=== PATIENT | female | born 1970 | race Caucasian/White ===

== ENCOUNTER 2023-04-15 06:34 | Outpatient (OUT) | payer BC, SELFPAY ==
[2023-04-15 07:34] LABS: Basophils Percent Auto 0.8 % (0.2-2.0); Eosinophils Absolute Auto 0.2 10^3/uL (0.0-0.7); Eosinophils Percent Auto 3.4 % (0.9-7.0); Hematocrit 41.2 % (36.0-48.0); Hemoglobin 13.4 g/dL (12.0-16.0); Immature Granulocytes Abs Auto 0.01 10^3/uL (0.00-0.03); Immature Granulocytes Pct Auto 0.2 % (0.0-0.5); Lymphocytes Absolute Auto 1.6 10^3/uL (1.2-3.8); Lymphocytes Percent Auto 32.2 % (20.5-60.0); Mean Corpuscular HGB Conc 32.5 g/dL (29.9-35.2); Mean Corpuscular Hemoglobin 28.9 pg (26.7-34.0); Mean Platelet Volume 9.8 fL (9.5-13.5); Monocytes Absolute Auto 0.4 10^3/uL (0.3-0.8); Monocytes Percent Auto 7.3 % (1.7-12.0); Neutrophils Absolute Auto 2.8 10^3/uL (1.4-6.5); Neutrophils Percent Auto 56.1 % (43.0-75.0); Platelet Count 269 10^3/uL (150-450); Red Blood Count 4.63 10^6/uL (4.20-5.40); Red Cell Distribution Width 13.2 % (11.0-15.0); White Blood Count 4.9 10^3/uL (4.0-11.0)
[2023-04-15 07:56] LABS: Alanine Aminotransferase 37 U/L (14-59); Albumin Level 3.9 g/dL (3.4-5.0); Alkaline Phosphatase 61 U/L (46-116); Anion Gap 11.5; Aspartate Amino Transferase 18 U/L (15-37); BUN Creatinine Ratio 23.9; Bilirubin Total 0.5 mg/dL (0.2-1.0); Calcium 9.3 mg/dL (8.5-10.1); Carbon Dioxide 28.8 mmol/L (21.0-32.0); Chloride 104 mmol/L (98-107); Estimated GFR (African America >60 (>=60); Estimated GFR (Non-African Ame >60 (>=60); Globulin 3.5 g/dL; Glucose 114 mg/dL (74-106); Potassium 4.3 mmol/L (3.5-5.1); Sodium 140 mmol/L (136-145); Total Protein 7.4 g/dL (6.4-8.2)
[2023-04-15 07:57] LABS: Albumin Globulin Ratio 1.1
[2023-04-15 08:08] LABS: Free T4 0.89 ng/dL (0.76-1.46)
[2023-04-15 08:10] LABS: Free T3 2.59 pg/mL (2.18-3.98); Thyroid Stimulating Hormone 2.665 uIU/mL (0.358-3.740)
[2023-04-15 08:22] LABS: Estimated Average Glucose 114 mg/dL; Glycohemoglobin A1C 5.6 % (4.5-6.2)
[2023-04-16 04:07] LABS: Thyroid Peroxidase (TPO) Ab 11 IU/mL (0-34)
[2023-04-23 12:09] LABS: Testosterone 13 ng/dL (4-50)
== END 2023-04-15 06:35 | disposition home or self-care (01) ==
LOC: LAB 06:38
PROVIDERS: PCP Internal Medicine
DX: R53.83 Other fatigue (principal)
CPT/HCPCS: 36415; 80053; 81291; 82306; 82607; 82627; 83036; 83525; 84140; 84402; 84403; 84439; 84443; 84481; 85025; 86376

== ENCOUNTER 2023-04-17 06:38 | Outpatient (OUT) | payer BC, SELFPAY | END 2023-04-17 06:39 | disposition home or self-care (01) | LOC: LAB 06:38 | PROVIDERS: PCP Internal Medicine | DX: Z00.00 Encounter for general adult medical examination without abnormal findings (principal); E55.9 Vitamin D deficiency, unspecified; R53.83 Other fatigue; E34.9 Endocrine disorder, unspecified | CPT/HCPCS: 36415; 84140 ==

== ENCOUNTER 2023-07-23 14:01 | Outpatient (OUT) | payer BC, SELFPAY ==
[2023-07-30 12:10] LABS: Free Testosterone(Direct) 1.3 pg/mL (0.0-4.2); Testosterone 9 ng/dL (4-50)
== END 2023-07-23 14:02 | disposition home or self-care (01) ==
LOC: LAB 14:03
PROVIDERS: PCP Internal Medicine
DX: E55.9 Vitamin D deficiency, unspecified (principal); E34.9 Endocrine disorder, unspecified
CPT/HCPCS: 36415; 82306; 84140; 84402; 84403